=== PATIENT | male | born 1970 | race Caucasian/White ===

== ENCOUNTER 2016-04-09 09:22 | Emergency (ER) | payer OTHER ==
[2016-04-09] MEDS ORDERED: HYDROcodone/Acetaminophen 10/325 mg Tablet ONE (09:44)
[2016-04-09] MEDS ORDERED: Morphine Sulfate 2 MG/ML SYRINGE ONE (10:31)
[2016-04-09] MEDS ORDERED: Silver Sulfadiazine 1% Cream 50 GM JAR ONE (10:41)
[2016-04-09] MEDS ORDERED: Bacitracin Zinc 1 Packet ONE ×2 (10:42→10:57)
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
== END 2016-04-09 11:42 | disposition home or self-care (01) ==
LOC: NAV ERS 09:22
DX: T23.331A Burn of third degree of multiple right fingers (nail), not including thumb, initial encounter (principal); T31.0 Burns involving less than 10% of body surface; I10 Essential (primary) hypertension; Z87.891 Personal history of nicotine dependence; X58.XXXA Exposure to other specified factors, initial encounter
CPT/HCPCS: 16025; 96374; J2270